=== PATIENT | female | born 1970 | race Caucasian/White ===

== ENCOUNTER 2024-03-17 13:43 | Emergency (ER) | payer OTHER ==
[~2024-03-17] VITALS: Ht 157.5 cm; Wt 90.7 kg
[2024-03-17 14:09] VITALS: PULSE 95; RESP 18; TEMP 98.3
[2024-03-17] MEDS: METOCLOPRAMIDE HCL 10 MG/2ML VIAL IV ONE (15:55)
[2024-03-17] MEDS: DIPHENHYDRAMINE HCL 25 MG CAP PO ONE (15:55)
[2024-03-17] MEDS: SODIUM CHLORIDE 0.9% 1000ML 1,000 ML IV SCH (15:56)
[2024-03-17] MEDS: KETOROLAC TROMETHAMINE 30 MG/ML VIAL IV STA (15:56)
[2024-03-17 16:58] VITALS: BP 135/84; PULSE 80; RESP 18; O2SAT 100
== END 2024-03-17 16:50 | disposition home or self-care (01) ==
LOC: ER 14:10
DX: S00.83XA Contusion of other part of head, initial encounter (principal); R51.9 Headache, unspecified; W22.09XA Striking against other stationary object, initial encounter; Y93.01 Activity, walking, marching and hiking; Y92.89 Other specified places as the place of occurrence of the external cause
CPT/HCPCS: 70450; 72125; 99283; J1885; J2765; J7030